=== PATIENT | female | born 1955 | race Caucasian/White ===

== ENCOUNTER → 2020-04-29 | Outpatient (CLI) | payer BC, OTHER ==
[~2020-04-29] MED LIST: AMLODIPINE BESYL5 MG PO; ASPIRIN EC81 MG PO; EFFEXOR XR75 MG PO; FLUZONE QU60 MCG/018 IM
== END ==
LOC: HEART 5 09:08
DX: J45.909 Unspecified asthma, uncomplicated (principal); R94.2 Abnormal results of pulmonary function studies
CPT/HCPCS: 94010

== ENCOUNTER → 2020-08-31 | Outpatient (CLI) | payer BC ==
[2020-08-31 13:18] LABS: HEMOGLOBIN 15.4 gm/dl (12.3-15.3); RED BLOOD COUNT 5.54 M/UL (4.00-5.10); WHITE BLOOD COUNT 8.1 K/UL (4.5-11.0)
[2020-08-31 13:50] LABS: BUN/CREATININE RATIO 17 (0-10)
== END ==
LOC: LAB 09:23
PROVIDERS: Family Medicine
DX: E78.5 Hyperlipidemia, unspecified (principal); I10 Essential (primary) hypertension; E55.9 Vitamin D deficiency, unspecified
CPT/HCPCS: 36415; 80053; 80061; 82607; 84443; 85027

== ENCOUNTER → 2021-08-16 | Day surgery (SDC) | payer BC ==
[~2021-08-16] MED LIST changes: +CARAFATE 1 GM TA1 GM PO; +CRESTOR 10 MG T10 MG PO; +PROTONIX 40 MG40 M1 PO; +TUMS200 MG PO; +[UNRECOGNIZED DRUG - OTHER] PO
== END | disposition home or self-care (01) ==
LOC: OR 07:06
DX: K22.10 Ulcer of esophagus without bleeding (principal); K21.00 Gastro-esophageal reflux disease with esophagitis, without bleeding; K29.60 Other gastritis without bleeding; K44.9 Diaphragmatic hernia without obstruction or gangrene; I10 Essential (primary) hypertension; E78.5 Hyperlipidemia, unspecified; E78.00 Pure hypercholesterolemia, unspecified; Z88.1 Allergy status to other antibiotic agents; Z88.8 Allergy status to other drugs, medicaments and biological substances; Z79.899 Other long term (current) drug therapy; E66.9 Obesity, unspecified; Z68.30 Body mass index [BMI] 30.0-30.9, adult
CPT/HCPCS: J2704; J7040